=== PATIENT | male | born 1940 | race Native Hawaiian/Other Pacific Islander ===

== ENCOUNTER 2016-12-09 08:57 | Outpatient (CLI) | payer OTHER | END 2016-12-09 19:05 | disposition home or self-care (01) | LOC: RAD 08:57 | DX: R06.02 Shortness of breath (principal) ==

== ENCOUNTER 2019-11-26 10:42 | Outpatient (CLI) | payer OTHER ==
[2019-11-26 11:08] LABS: PLATELET COUNT 201 K/uL (142-355)
[2019-11-26 11:37] LABS: POTASSIUM 4.2 mmol/L (3.6-5.2)
== END 2019-11-26 20:55 | disposition home or self-care (01) ==
LOC: LABW 10:42
PROVIDERS: Internal Medicine
DX: I12.9 Hypertensive chronic kidney disease with stage 1 through stage 4 chronic kidney disease, or unspecified chronic kidney disease (principal); N18.3 Chronic kidney disease, stage 3 (moderate); R53.83 Other fatigue; D64.9 Anemia, unspecified; E53.8 Deficiency of other specified B group vitamins
CPT/HCPCS: 36415; 80053; 81000; 82024; 82088; 82306; 82330; 82533; 82570; 82607; 82728; 82746; 83540; 83550; 83735; 83835; 83970; 84100; 84155; 84244; 84439; 84443; 85027; 85651; 86038

== ENCOUNTER 2019-12-03 08:50 | Outpatient (CLI) | payer OTHER | END 2019-12-03 19:38 | disposition home or self-care (01) | LOC: US 08:50 | DX: N18.3 Chronic kidney disease, stage 3 (moderate) (principal) ==

== ENCOUNTER 2020-02-19 08:33 | Outpatient (CLI) | payer OTHER | END 2020-02-19 21:34 | disposition home or self-care (01) | LOC: US 08:33 | DX: N18.30 Chronic kidney disease, stage 3 unspecified (principal) ==

== ENCOUNTER 2021-03-09 08:05 | Outpatient (CLI) | payer MEDICARE | END 2021-03-09 18:54 | disposition home or self-care (01) | LOC: US 08:05 | PROVIDERS: ATTEND Internal Medicine | DX: N18.31 Chronic kidney disease, stage 3a (principal) ==

== ENCOUNTER 2021-07-27 15:57 | Outpatient (CLI) | payer OTHER | END 2021-07-27 19:47 | disposition home or self-care (01) | LOC: RAD 15:57 | PROVIDERS: ATTEND Nurse Practitioner Family | DX: M79.672 Pain in left foot (principal) ==

== ENCOUNTER 2021-11-09 10:56 | Outpatient (CLI) | payer OTHER | END 2021-11-09 19:11 | disposition home or self-care (01) | LOC: RAD 10:56 | PROVIDERS: ATTEND Nurse Practitioner | DX: M79.672 Pain in left foot (principal) ==